=== PATIENT | female | born 1985 | race Hispanic/Latino ===

== ENCOUNTER 2018-10-15 10:29 | Emergency (ER) | payer BC ==
[~2018-10-15] VITALS: Ht 139.7 cm; Wt 70.0 kg
[~2018-10-15 10:29] MED LIST: OB COMPLET2 PO
[2018-10-15 11:47] LABS: HEMATOCRIT 38.7 % (37.0-47.0); HEMOGLOBIN 13.2 g/dl (12.0-16.0); IMMATURE GRANULOCYTES 0.5 % (0.0-5.0); MEAN CELL VOLUME 89.2 fL CALC (80.0-100.0); MEAN CORPUSCULAR HGB 30.4 pG CALC (26.0-32.0); MEAN CORPUSCULAR HGB CONC 34.1 g/L CALC (32.0-36.0); NEUT# 10.58 thou/uL (2.00-7.15); RED BLOOD COUNT 4.34 mill/uL (4.20-5.60); RED CELL DISTRI WIDTH 11.3 % (11.5-15.5)
[2018-10-15 11:48] LABS: URINE BILIRUBIN - DIPSTICK NEGATIVE (NEGATIVE); URINE BLOOD DIPSTICK LARGE (NEGATIVE); URINE COLOR YELLOW; URINE GLUCOSE - DIPSTICK NEGATIVE (NEGATIVE); URINE KETONE NEGATIVE (NEGATIVE); URINE LEUK ESTERASE TRACE (NEGATIVE); URINE NITRITE - DIPSTICK NEGATIVE (Negative); URINE PROTEIN - DIPSTICK NEGATIVE (NEG-TRACE); URINE UROBILINOGEN - DIPSTICK 0.2 E.U./dL (0.2)
[2018-10-15 11:57] LABS: URINE RBC 50-100 RBC/hpf (0-5); URINE SQUAMOUS EPITHELIAL CELL FEW EPI/hpf (0-FEW); URINE WBC 0-2 WBC/hpf (0-5)
[2018-10-15 12:08] LABS: ALBUMIN 4.6 g/dL (3.2-5.0); ALKALINE PHOSPHATASE 133 u/l (38-126); ANION GAP 15 (6-22 (CALC)); BILIRUBIN, TOTAL 0.4 mg/dL (0.0-1.4); BUN 16 mg/dL (7-17); BUN/CREATININE RATIO 30 (12-20 (CALC)); CARBON DIOXIDE 25 mmol/l (22-30); CHLORIDE 102 mmol/l (95-108); CREATININE 0.5 mg/dL (0.5-1.0); GFR > 60 ML/MIN (>=60 (CALC)); GFR FOR AFR.AMER. > 60 ML/MIN (>=60 (CALC)); LIPASE 98 u/l (23-300); POTASSIUM 4.3 mmol/l (3.5-5.1); SODIUM 139 mmol/l (137-146); TOTAL PROTEIN 7.5 g/dL (6.3-8.2)
[2018-10-15 12:09] LABS: SGOT/AST 56 u/l (14-36)
[2018-10-15] MEDS ORDERED: MOTRIN400 MG PO (13:45)
[2018-10-15] MEDS ORDERED: TRAMADOL HCL E100 MG PO (13:45)
[2018-10-15] MEDS ORDERED: TAMSULOSIN0.4 MG PO (13:45)
[2018-10-15] MEDS ORDERED: CEPHALEXIN500 M1 PO (13:45)
[2018-10-15 13:52] VITALS: BP 126/74
== END 2018-10-15 13:54 | disposition home or self-care (01) | DRG 694 ==
LOC: ED 10:29
PROVIDERS: Family Medicine
DX: N13.2 Hydronephrosis with renal and ureteral calculous obstruction (principal); Z87.442 Personal history of urinary calculi; R11.2 Nausea with vomiting, unspecified; R10.9 Unspecified abdominal pain
CPT/HCPCS: Q9967

== ENCOUNTER 2018-10-31 07:56 | Day surgery (SDC) | payer BC ==
[~2018-10-31] VITALS: Ht 149.9 cm; Wt 68.0 kg
[~2018-10-31 07:56] MED LIST changes: +CEPHALEXIN500 M1 PO; +CHANCA PIEDRA PO; +MOTRIN400 MG PO; +PERCOCET 10/31 COMBO PO; +TAMSULOSIN0.4 MG PO; +TRAMADOL HCL E100 MG PO
[2018-10-31] MEDS ORDERED: PERCOCET 10/31 COMBO PO (12:03)
[2018-10-31 12:42] VITALS: BP 119/77
== END 2018-10-31 12:56 | disposition home or self-care (01) | DRG 661 ==
LOC: ORM 07:56
PROVIDERS: ATTEND Urology
PROC: 0TC68ZZ Extirpation of Matter from Right Ureter, Via Natural or Artificial Opening Endoscopic (ICD-10-PCS; principal; 2018-10-31)
PROC: 0T768DZ Dilation of Right Ureter with Intraluminal Device, Via Natural or Artificial Opening Endoscopic (ICD-10-PCS; 2018-10-31)
DX: N13.2 Hydronephrosis with renal and ureteral calculous obstruction (principal)
CPT/HCPCS: J2710

== ENCOUNTER 2020-02-12 22:21 | Emergency (ER) | payer BC ==
[~2020-02-12] VITALS: Ht 147.3 cm; Wt 54.0 kg
[2020-02-12 22:56] LABS: HEMATOCRIT 37.6 % (37.0-47.0); HEMOGLOBIN 12.9 g/dl (12.0-16.0); IMMATURE GRANULOCYTES 0.2 % (0.0-5.0); MEAN CELL VOLUME 86.4 fL CALC (80.0-100.0); MEAN CORPUSCULAR HGB 29.7 pG CALC (26.0-32.0); MEAN CORPUSCULAR HGB CONC 34.3 g/dL CAL (32.0-36.0); NEUT# 9.73 thou/uL (2.00-7.15); RED BLOOD COUNT 4.35 mill/uL (4.20-5.60); RED CELL DISTRI WIDTH 11.7 % (11.5-15.5)
[2020-02-12 23:22] LABS: ALBUMIN 4.8 g/dL (3.2-5.0); ALKALINE PHOSPHATASE 105 u/l (38-126); AMYLASE 69 u/l (30-110); BILIRUBIN, TOTAL 0.3 mg/dL (0.0-1.4); BUN 14 mg/dL (7-17); BUN/CREATININE RATIO 20 (12-20 (CALC)); CARBON DIOXIDE 20 mmol/l (22-30); CHLORIDE 105 mmol/l (95-108); CREATININE 0.7 mg/dL (0.5-1.0); GFR > 60 ML/MIN (>=60 (CALC)); GFR FOR AFR.AMER. > 60 ML/MIN (>=60 (CALC)); LIPASE 151 u/l (23-300); SGOT/AST 30 u/l (14-36); SODIUM 137 mmol/l (137-146); TOTAL PROTEIN 7.6 g/dL (6.3-8.2)
[2020-02-12 23:29] LABS: ANION GAP 15 (6-22 (CALC)); POTASSIUM 3.4 mmol/l (3.5-5.1)
[2020-02-13 00:43] LABS: URINE BILIRUBIN - DIPSTICK NEGATIVE (NEGATIVE); URINE BLOOD DIPSTICK LARGE (NEGATIVE); URINE COLOR YELLOW; URINE GLUCOSE - DIPSTICK NEGATIVE (NEGATIVE); URINE KETONE 15 mg/dL (NEGATIVE); URINE NITRITE - DIPSTICK NEGATIVE (Negative); URINE PROTEIN - DIPSTICK NEGATIVE (NEG-TRACE); URINE UROBILINOGEN - DIPSTICK 0.2 E.U./dL (0.2)
[2020-02-13 00:49] LABS: URINE BACTERIA MODERATE hpf; URINE EPITHELIAL CELLS FEW EPI/hpf (0-FEW); URINE LEUK ESTERASE NEGATIVE (NEGATIVE); URINE RBC 25-50 RBC/hpf (0-5)
[2020-02-13] MEDS ORDERED: PERCOCET 5/325M1 TAB PO (03:07)
[2020-02-13] MEDS ORDERED: CIPROFLOXACN500 MG PO (03:07)
[2020-02-13] MEDS ORDERED: IBUPROFEN600 MG PO (03:07)
[2020-02-13 03:21] VITALS: BP 120/65
== END 2020-02-13 03:21 | disposition home or self-care (01) | DRG 694 ==
LOC: ED 22:21
PROVIDERS: Emergency Medicine
DX: N13.2 Hydronephrosis with renal and ureteral calculous obstruction (principal); Z87.442 Personal history of urinary calculi
CPT/HCPCS: J1956; Q9967

== ENCOUNTER 2020-02-17 13:38 | Emergency (ER) | payer BC ==
[~2020-02-17] VITALS: Ht 149.9 cm; Wt 54.0 kg
[~2020-02-17 13:38] MED LIST changes: +CIPROFLOXACN500 MG PO; +IBUPROFEN600 MG PO; +PERCOCET 5/325M1 TAB PO
[2020-02-17 14:30] LABS: HEMATOCRIT 37.6 % (37.0-47.0); HEMOGLOBIN 12.9 g/dl (12.0-16.0); IMMATURE GRANULOCYTES 0.4 % (0.0-5.0); MEAN CELL VOLUME 87.4 fL CALC (80.0-100.0); MEAN CORPUSCULAR HGB CONC 34.3 g/dL CAL (32.0-36.0); NEUT# 8.72 thou/uL (2.00-7.15); RED BLOOD COUNT 4.3 mill/uL (4.20-5.60); RED CELL DISTRI WIDTH 11.5 % (11.5-15.5)
[2020-02-17 14:32] LABS: URINE BILIRUBIN - DIPSTICK NEGATIVE (NEGATIVE); URINE BLOOD DIPSTICK NEGATIVE (NEGATIVE); URINE COLOR YELLOW; URINE GLUCOSE - DIPSTICK NEGATIVE (NEGATIVE); URINE KETONE NEGATIVE (NEGATIVE); URINE LEUK ESTERASE NEGATIVE (NEGATIVE); URINE NITRITE - DIPSTICK NEGATIVE (Negative); URINE PROTEIN - DIPSTICK NEGATIVE (NEG-TRACE); URINE SPECIFIC GRAVITY 1.015; URINE UROBILINOGEN - DIPSTICK 0.2 E.U./dL (0.2)
[2020-02-17 14:56] LABS: ALBUMIN 4.5 g/dL (3.2-5.0); ALKALINE PHOSPHATASE 88 u/l (38-126); ANION GAP 14 (6-22 (CALC)); BILIRUBIN, TOTAL 0.6 mg/dL (0.0-1.4); BUN 13 mg/dL (7-17); BUN/CREATININE RATIO 15 (12-20 (CALC)); CARBON DIOXIDE 24 mmol/l (22-30); CHLORIDE 101 mmol/l (95-108); CREATININE 0.9 mg/dL (0.5-1.0); GFR > 60 ML/MIN (>=60 (CALC)); GFR FOR AFR.AMER. > 60 ML/MIN (>=60 (CALC)); LIPASE 48 u/l (23-300); POTASSIUM 4.1 mmol/l (3.5-5.1); SGOT/AST 22 u/l (14-36); SODIUM 135 mmol/l (137-146); TOTAL PROTEIN 7.3 g/dL (6.3-8.2)
[2020-02-17] MEDS ORDERED: TAMSULOSIN0.4 MG PO (15:48)
[2020-02-17] MEDS ORDERED: PHENERGAN25 MG/TAB PO (15:48)
[2020-02-17] MEDS ORDERED: ONDANSETRON4 MG PO (15:48)
[2020-02-17] MEDS ORDERED: HYDROCO/APAP1 TA9 PO (15:48)
[2020-02-17 16:06] VITALS: BP 147/93
== END 2020-02-17 16:04 | disposition home or self-care (01) | DRG 694 ==
LOC: ED 13:38
PROVIDERS: Family Medicine
DX: N20.1 Calculus of ureter (principal); Z87.442 Personal history of urinary calculi

== ENCOUNTER 2022-09-09 12:14 | Emergency (ER) | payer BC ==
[~2022-09-09] VITALS: Ht 149.9 cm; Wt 56.2 kg
[~2022-09-09 12:14] MED LIST changes: +HYDROCO/APAP1 TA9 PO; +ONDANSETRON4 MG PO; +PHENERGAN25 MG/TAB PO
[2022-09-09 12:32] VITALS: BP 147/100
[2022-09-09 12:45] VITALS: BP 132/97
[2022-09-09] MEDS ORDERED: DECADRON4 MG PO (12:53)
[2022-09-09 13:00] VITALS: BP 129/84
== END 2022-09-09 13:04 | disposition home or self-care (01) | DRG 918 ==
LOC: ED 12:14
DX: T49.4X1A Poisoning by keratolytics, keratoplastics, and other hair treatment drugs and preparations, accidental (unintentional), initial encounter (principal); L24.5 Irritant contact dermatitis due to other chemical products; Y92.9 Unspecified place or not applicable